=== PATIENT | male | born 2000 | race Caucasian/White ===

== ENCOUNTER 2024-10-05 18:26 | Emergency (ER) | payer OTHER, SELFPAY ==
[2024-10-05 18:27] VITALS: BP 116/53; PULSE 90; RESP 16; TEMP 36.4; O2SAT 99; BMI 26.9
--- NOTE | 2024-10-05 18:36 | ED.VIS.FALL ---
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 He landed on his back and the wind was knocked out of him. He is not sure if he hit his head but denies LOC. He states the pallet was on his right leg and he has a scrape and soreness in the roberto but can walk. He took ibuprofen for his low back pain and presents for evaluation. He has no pain in his chest or abdomen. No nausea or vomiting. No pain or weakness in his extremities. PFSH <HAILEY Brown Last Filed: 10/05/24 20:00> [facility] Medical History unable to obtain Home Medications ?Medication ?Instructions ?Recorded ?Last Taken ?Type oxycodone-acetaminophen 5 mg-325 1 tab PO Q6H PRN pain 3 days #12 10/05/24 Unknown Rx mg tablet (Percocet) tabs Allergy/AdvReac Type Severity Reaction Status Date / Time No Known Allergies Allergy Verified 10/05/24 18:27 Social History Smoking Status: Unknown if ever smoked ROS <HAILEY Brown - Last Filed: 10/05/24 20:00> ROS ED ROS Narrative CVS: Negative for chest pain, syncope. Respiratory: Negative for shortness of breath. GI: Negative for abdominal pain, nausea, vomiting. Neuro: Negative for headache, motor/sensory dysfunction. EXAM <HAILEY Brown - Last Filed: 10/05/24 20:00> Physical Exam Narrative Exam Narrative: CONST: Patient sitting in no acute distress. EYES: Normal inspection. HEAD: Normocephalic atraumatic. NECK: Normal inspection. No midline spinal tenderness, no step off or crepitus. RESP: No respiratory distress, CTAB. Chest wall nontender CVS: Regular rate and rhythm, no murmur, no gallop. ABD: Soft and nontender, no guarding or rebound, nondistended. Back: Normal inspection, no thoracic tenderness or step-offs, tender over the lower lumbar spine without step-offs. Scattered abrasions from landing on gravel on his lower back. EXTREMITIES: Moving upper and lower extremities through full range of motion, 5/5 strength, 2+ radial and PT pulses. Localized soft tissue swelling and superficial skin abrasion distal right anterior lateral roberto. NEURO: Alert and answering questions appropriately. PSYCH: Normal affect. Const Vital Signs: 10/05/24 18:27 10/05/24 19:27 10/05/24 20:00 Temperature 97.6 F L Temperature Source Temporal Pulse Rate 90 74 75 Respiratory Rate 16 18 18 Respiratory Effort Respiratory Depth Respiratory Pattern Blood Pressure 116/53 L Blood Pressure Mean 74 Pulse Ox 99 96 97 Oxygen Delivery Method Room Air 10/05/24 20:01 10/05/24 20:02 Temperature 98 F Temperature Source Pulse Rate 77 Respiratory Rate 18 Respiratory Effort Normal Respiratory Depth Normal Respiratory Pattern Normal Blood Pressure 132/62 H Blood Pressure Mean 85 Pulse Ox 95 Oxygen Delivery Method Room Air <Dr. Raji Peterson DO - Last Filed: 10/05/24 20:05> Physical Exam Const Vital Signs: 10/05/24 18:27 10/05/24 19:27 10/05/24 20:00 Temperature 97.6 F L Temperature Source Temporal Pulse Rate 90 74 75 Respiratory Rate 16 18 18 Respiratory Effort Respiratory Depth Respiratory Pattern Blood Pressure 116/53 L Blood Pressure Mean 74 Pulse Ox 99 96 97 Oxygen Delivery Method Room Air 10/05/24 20:01 10/05/24 20:02 Temperature 98 F Temperature Source Pulse Rate 77 Respiratory Rate 18 Respiratory Effort Normal Respiratory Depth Normal Respiratory Pattern Normal Blood Pressure 132/62 H Blood Pressure Mean 85 Pulse Ox 95 Oxygen Delivery Method Room Air [facility] <HAILEY rBown - Last Filed: 10/05/24 20:00> [facility] Narrative Medical decision making narrative: History gathered from: Patient and family Differential includes but not limited to low back contusion versus fracture 24-year-old male fell from approximately 8 feet height onto his lower back. No head injury or LOC. He is awake and alert. GCS 15. Stable vital signs. He is walking around the room in no distress. He has superficial abrasions across the lower back from landing in gravel and lower lumbar spinal tenderness without step-offs. He has mild soft tissue swelling and abrasion over the right lateral lower roberto. Upper and lower extremities are neurovascularly intact. He has no red flag signs concerning for cauda equina syndrome. CT of the lumbar spine is negative for acute injuries. Right tib-fib negative. Patient took ibuprofen prior to arrival and states he is only slightly sore so did not want anything further here. He is comfortable taking ibuprofen [id number] and I prescribed Percocet as needed for breakthrough pain. He was discharged in stable condition. Radiography Diagnostic Testing: Clinical Impression(s) from Imaging Studies Tibia/Fibula X-Ray 10/05/24 18:48 IMPRESSION: No acute findings. [facility] 10/05/24 19:02 IMPRESSION: No displaced fracture or traumatic listhesis involving the lumbar spine. Reading Location: [facility] ED attending interpretation of right tibia/fibula shows no fracture or dislocation. <Dr. Raji Peterson, DO - Last Filed: 10/05/24 20:05> [facility] Radiography Diagnostic Testing: Clinical Impression(s) from Imaging Studies Tibia/Fibula X-Ray 10/05/24 18:48 IMPRESSION: No acute findings. Reading Location: [facility] Lumbar Spine CT 10/05/24 19:02 IMPRESSION: No displaced fracture or traumatic listhesis involving the lumbar spine. Reading Location: [id number] and Re-Evaluation Narrative: I have personally performed a face to face assessment of the patient and have reviewed the REINA Note. I performed a substantive portion of the visit including all aspects of the following. My malhotra findings include: History: Patient presents with back and lower leg pain that began after a fall. Patient states he fell approximately 8 feet off of a truck. Patient landed on his low back. Patient denies any head injury or loss of consciousness. Patient describes the pain as sharp. Patient took some ibuprofen which helped. Patient denies any paresthesias or weakness. Patient states his last tetanus was within 5 years. Exam: Vital signs are stable. Patient is afebrile. Patient is in no acute distress. Cranial nerves II through XII are intact. Strength is 5/5 bilaterally upper and lower extremities. There are no sensory deficits noted. There are superficial abrasions over the lower extremities bilaterally, worse on the right. There is no active bleeding noted. There is some mild tenderness over the distal right lower leg. There is tenderness over the lumbar spine and paraspinal muscles. There is no edema or ecchymosis. Range of motion was slightly limited in all motions secondary to pain. There is no bony crepitance or step-off noted. Medical Decision Making: Differential diagnosis includes lumbar fracture, tibia and fibula fracture, abrasions, and contusion. CT scan of the lumbar spine will be obtained to assess for lumbar fracture. X-rays of the tibia and fibula will be obtained to assess for tibia and fibula fracture. X-rays of the right tibia and fibula were obtained. There are 2 views. On my independent interpretation, there is no acute fracture or dislocation noted. Radiologist also interpreted the x-rays and agrees. CT scan of the lumbar spine was obtained. There is no acute fracture or spondylolisthesis noted. There is no soft tissue swelling noted. This was interpreted by the radiologist and was also independently reviewed by myself. Patient was advised of his findings. Patient was instructed to use ice to the area. Patient was instructed to take Tylenol or ibuprofen as needed for pain. Patient was instructed to follow-up with his primary care physician in 5 to 7 days. Patient understood and was agreeable with the plan. All questions were answered. Discharge Plan Triage Chief Complaint: Fall ED Midlevel Provider: Dulce Rodriguez ED Provider: Raji Peterson Dx/Rx/DC Orders Clinical Impression: Lumbar contusion, Contusion of leg, right, Injury resulting from fall from height Instructions: ED Back Contusion Prescriptions: New oxycodone-acetaminophen [Percocet] 5-325 mg tablet 1 tab PO Q6H PRN (Reason: pain) 3 Days Qty: 12 0RF Primary Care Provider: Earl Bradley Referrals: NOT,DEFINED [Non-Staff] - Activity Restrictions/Additional Instructions: The CT scan of your lumbar spine shows no broken bones. Ice and take ibuprofen every 6 hours as needed. I prescribed Percocet for breakthrough pain. If you use the Percocet this can cause constipation so I recommend [id number] stool softeners like MiraLAX or Dulcolax while taking it. Print Language: Panamanian Disposition Disposition: Home, Self Care
--- NOTE | 2024-10-05 18:48 | RAD_ITS ---
PROCEDURE: TIBIA FIBULA 2 VIEWS 10/05/2024 REASON FOR EXAM: PAIN TECHNIQUE: 2 view(s) of the right tibia and fibula. COMPARISON: None FINDINGS: No acute fracture or dislocation. Joint spaces and ankle mortise are maintained. No significant soft tissue swelling. RAD/Tibia & Fibula 2 Views IMPRESSION: No acute findings. Reading Location: [facility]
--- NOTE | 2024-10-05 19:02 | CT_ITS ---
PROCEDURE: SPINE LUMBAR WITHOUT CONTRAST 10/05/2024 REASON FOR EXAM: PAIN, FALL TECHNIQUE: Lumbar spine CT without contrast. Coronal and Sagittal reconstruction series were provided. One or more dose reduction techniques were used (e.g., Automated exposure control, adjustment of the mA and/or kV according to patient size, use of iterative reconstruction technique COMPARISON: None. RADIATION DOSE SUMMARY: CTDlvol: 14.7 mGy DLP: 530 mGycm FINDINGS: There are rudimentary ribs at L1. Vertebral body heights and alignment are maintained. No displaced fracture. No significant degenerative changes. There are Schmorl's nodes in the lower thoracic spine. The soft tissues are unremarkable. CT/Spine Lumbar without Contrast IMPRESSION: No displaced fracture or traumatic listhesis involving the lumbar spine. Reading Location: [id number]
[2024-10-05 19:27] VITALS: PULSE 74; RESP 18; O2SAT 96
[2024-10-05 20:00] VITALS: PULSE 75; RESP 18; O2SAT 97
[2024-10-05 20:02] VITALS: BP 132/62; PULSE 77; RESP 18; TEMP 36.6; O2SAT 95
== END 2024-10-05 20:04 | disposition home or self-care (01) ==
PROVIDERS: Emergency Provider Emergency Medicine; PCP Family Medicine; Visit Provider Emergency Medicine
DX: S30.0XXA Contusion of lower back and pelvis, initial encounter (principal); S80.11XA Contusion of right lower leg, initial encounter; W19.XXXA Unspecified fall, initial encounter
CPT/HCPCS: 72131; 73590; 99282